=== PATIENT | male | born 1980 | race Two or more races ===

== ENCOUNTER 2017-02-08 11:08 | Emergency (ER) | payer BC, MEDICAID ==
[~2017-02-08] VITALS: Ht 180.3 cm; Wt 87.5 kg
[~2017-02-08 11:08] MED LIST: HALO100A2 IM
--- NOTE | 2017-02-08 11:32 | NUR ---
PT IS IN ROOM #2B. DR BLANC EVALUATED THE PT.
[2017-02-08] MEDS ORDERED: MISCELLANEOUS MED IM ONE (11:45)
[2017-02-08] MEDS ORDERED: HALOPERIDOL DECANOATE 50 MG/1 ML AMPUL IM ONE (12:15)
--- NOTE | 2017-02-08 12:33 | NUR ---
PT WAS D/C TO HOME. D/C INSTRUCTIONS GIVEN TO THE PT.
[2017-02-08 12:34] VITALS: BP 131/77
== END 2017-02-08 12:34 | disposition home or self-care (01) ==
LOC: ER 11:12
DX: F20.9 Schizophrenia, unspecified (principal)
CPT/HCPCS: A4663; J1631